=== PATIENT | female | born 1960 | race Caucasian/White ===

== ENCOUNTER 2023-12-23 11:56 | Emergency (ER) | payer OTHER, SELFPAY ==
[2023-12-23 11:57] VITALS: BP 186/103
[2023-12-23 14:00] VITALS: BP 161/80
--- NOTE | 2023-12-23 14:27 | ED.GENMED ---
History of Present Illness
General
Chief Complaint: Skin Problem
Source: patient
Exam Limitations: none
Time Seen by Provider: 12/23/23 12:55
Nursing documentation reviewed up to this point in time: agreed with
History of Present Illness
History of Present Illness:
63-year-old female with past medical history of anxiety presenting to the emergency department today with concerns of shingles rash to the right side of the face that was diagnosed at the primary care doctor 2 days ago started on Valtrex as well as
antiviral eyedrops. She is presenting today with worsening inflammation of the right side of the face.
Review of Systems
Review of Systems
Allergies reviewed?: Yes
All Other Systems: ROS reviewed and negative except as documented in HPI and ROS
Phy Exam
Physical Exam
Physical Exam:
GENERAL: Alert , in no apparent distress
EYE: pupils equal and reactive
NECK: Supple, no significant adenopathy.
ENT: Scattered vesicles with erythematous base throughout the right forehead surrounding the right eye to the eyelids some irritation to the no obvious involvement of the anterior chamber or cornea no fluorescein uptake o/p clr, mmm.
CARDIAC: Regular rate and rhythm .
LUNGS: Clear breath sounds bilaterally, no acute respiratory distress, no wheezes/rales/rhonchi
ABDOMEN: Soft, without focal tenderness, no r/g, no cvat
NEUROLOGICAL: Alert and oriented, no focal neuro deficits
SKIN: Warm and dry, skin intact.
MUSCULOSKELETAL: No edema, well perfused.
PSYCH: Normal and appropriate interaction.
Course
Vital Signs
Initial and Last Documented VS:
Initial Vital Signs
Temp Pulse Resp BP Pulse Ox
98.8 F 119 20 186/103 96
12/23/23 11:57 12/23/23 11:57 12/23/23 11:57 12/23/23 11:57 12/23/23 11:57
Last Documented Vital Signs
Temp Pulse Resp BP Pulse Ox
98.8 F 119 20 186/103 96
12/23/23 11:57 12/23/23 11:57 12/23/23 11:57 12/23/23 11:57 12/23/23 11:57
MDM/Problems Addressed
MDM/Problems Addressed:
63-year-old female presenting to the emergency department today with concerns of right-sided forehead shingles. Some worsening swelling over the past few days. No obvious involvement of the cornea no signs of uveitis does have involvement of the
conjunctiva. Case was discussed with ophthalmology who will follow her up closely. She was started on topical steroid and erythromycin in accordance to ophthalmology recommendations. Otherwise stable for discharge return precautions given.
*Critical Care Note
Total Time (30-74mins, 75-104mins- exclusive of procedures): Not Applicable
ED Attending Note
-
Portions of this chart may have been created with voice recognition software.� Occasional wrong word or��sound alike� substitutions may have occurred due to the inherent limitations of voice recognition software.
Discharge Plan
Departure
Patient Disposition: Home (Routine Discharge)
Date of Disposition: 12/23/23
Time of Disposition: 14:30
Patient with high blood pressure during this ER visit?: No
Condition: Good
Covid-19: Not Applicable
Discharge Problem:
Ophthalmic herpes zoster
Instructions: Shingles
Prescriptions:
New
prednisolone acetate 1 % drops,suspension
2 drp ophthalmic (eye) QID Qty: 10 0RF
valacyclovir [Valtrex] 1 gram tablet
1,000 mg PO TID 3 Days Qty: 9 0RF
erythromycin 5 mg/gram (0.5 %) ointment
1 applic ophthalmic (eye) HS Qty: 3.5 0RF
Referrals:
Beni Olivas MD [Family Provider] -
Chantal Pérez MD [Active] - Tomorrow
Activity Restrictions/Additional Instructions:
You came to the emergency department today for concerns of herpes zoster. Please call [phone] to schedule your follow-up appointment tomorrow with the general manager farm. Please take the prescribed medications return to the emergency department
for any worsening, new or concerning symptoms.
Interventions
Interventions:
*General Assessment Last Done: 12/23/23 12:08
ED- Fall Risk Assessment Last Done: 12/23/23 13:20
*ED COVID-19 Vaccine History Last Done: 12/23/23 12:08
ED-Skin Assessment Last Done: 12/23/23 13:20
Discharge Date and Time
Print Language: CONGOLESE
== END 2023-12-23 14:59 | disposition home or self-care (01) ==
LOC: EMR 11:56
PROVIDERS: EMERGENCY PHYSICIAN Emergency Medicine; FAMILY PHYSICIAN Family Medicine
DX: B02.30 Zoster ocular disease, unspecified (principal); F41.9 Anxiety disorder, unspecified
CPT/HCPCS: 99283